=== PATIENT | male | born 1960 | race Caucasian/White ===

== ENCOUNTER 2018-04-08 01:28 | Emergency (ER) | payer MEDICARE ==
[~2018-04-08] VITALS: Ht 177.8 cm; Wt 118.0 kg
[2018-04-08 01:29] VITALS: BP 119/80
== END 2018-04-08 03:12 | disposition home or self-care (01) ==
LOC: ED 03:00
DX: J41.1 Mucopurulent chronic bronchitis (principal); Z72.9 Problem related to lifestyle, unspecified; F17.200 Nicotine dependence, unspecified, uncomplicated
CPT/HCPCS: 71046; 99283

== ENCOUNTER 2018-04-14 16:09 | Emergency (ER) | payer MEDICARE ==
[~2018-04-14] VITALS: Ht 177.8 cm; Wt 114.4 kg
[2018-04-14 16:13] VITALS: BP 123/76
== END 2018-04-14 16:30 | disposition left against medical advice (07) ==
LOC: ED 16:23
DX: J06.9 Acute upper respiratory infection, unspecified (principal)
CPT/HCPCS: 99281

== ENCOUNTER 2018-04-24 18:40 | Emergency (ER) | payer MEDICARE ==
[~2018-04-24] VITALS: Ht 177.8 cm; Wt 112.0 kg
[2018-04-24 19:06] VITALS: BP 137/89
== END 2018-04-24 20:42 | disposition home or self-care (01) ==
LOC: ED 20:36
DX: R05 Cough (principal); Z72.9 Problem related to lifestyle, unspecified
CPT/HCPCS: 71046; 99283

== ENCOUNTER 2018-04-24 22:21 | Emergency (ER) | payer MEDICARE | END 2018-04-24 22:32 | disposition home or self-care (01) | LOC: ED 22:26 | DX: R07.0 Pain in throat (principal); Z53.21 Procedure and treatment not carried out due to patient leaving prior to being seen by health care provider ==

== ENCOUNTER 2018-04-29 00:10 | Emergency (ER) | payer MEDICARE ==
[~2018-04-29] VITALS: Ht 177.8 cm; Wt 114.9 kg
[2018-04-29 00:13] VITALS: BP 118/81
== END 2018-04-29 01:51 | disposition home or self-care (01) ==
LOC: ED 01:36
DX: J02.8 Acute pharyngitis due to other specified organisms (principal); R05 Cough; Z87.891 Personal history of nicotine dependence
CPT/HCPCS: 71046; 99283

== ENCOUNTER 2018-05-16 17:56 | Emergency (ER) | payer MEDICARE ==
[~2018-05-16] VITALS: Ht 177.8 cm; Wt 116.2 kg
[2018-05-16 18:10] VITALS: BP 117/67
== END 2018-05-16 19:01 | disposition home or self-care (01) ==
LOC: ED 18:55
DX: R05 Cough (principal)
CPT/HCPCS: 99283

== ENCOUNTER 2018-05-28 21:07 | Emergency (ER) | payer MEDICARE ==
[~2018-05-28] VITALS: Ht 177.8 cm; Wt 113.5 kg
[2018-05-28 21:19] VITALS: BP 135/77
--- NOTE | 2018-05-28 22:22 | NUR ---
PT HERE FOR COLD LIEK SYMPTOMS AND NOT FEELING WELL. JUST GENERALIZED NOT FEELING WELL. DENIES CP, SOB AND ANY DIZZYNESS.
[2018-05-28] MEDS ORDERED: DEXAMETHASONE 4 MG/ML, 1ML ONE (22:40)
--- NOTE | 2018-05-28 22:47 | NUR ---
PO STEROIDS WITH CRANBERRY JUICE GIVEN.
--- NOTE | 2018-05-28 22:56 | NUR ---
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
[2018-05-28] MEDS ORDERED: DEXAMETHASONE 4 MG/ML, 1ML PO ONE (23:00)
--- NOTE | 2018-05-28 23:28 | NUR ---
Patient/Caregiver given discharge instructions and they have confirmed that they understand the instructions. Patient ambulatory with steady gait.
== END 2018-05-28 23:30 | disposition home or self-care (01) ==
LOC: ED 21:35
DX: B34.9 Viral infection, unspecified (principal); Z72.9 Problem related to lifestyle, unspecified; Z87.01 Personal history of pneumonia (recurrent)
CPT/HCPCS: 71046; 99283; J1100

== ENCOUNTER 2018-06-02 18:05 | Emergency (ER) | payer MEDICARE ==
[~2018-06-02] VITALS: Ht 177.8 cm; Wt 113.6 kg
[2018-06-02 18:06] VITALS: BP 127/79
== END 2018-06-02 19:40 | disposition home or self-care (01) ==
LOC: ED 19:34
DX: R05 Cough (principal); Z72.9 Problem related to lifestyle, unspecified
CPT/HCPCS: 71046; 99283

== ENCOUNTER 2019-04-20 04:13 | Emergency (ER) | payer MEDICARE ==
[~2019-04-20] VITALS: Ht 177.8 cm; Wt 104.7 kg
[2019-04-20 04:15] VITALS: BP 134/82
[2019-04-20 05:04] LABS: RAPID INFLUENZA A Negative (Negative); RAPID INFLUENZA B Negative (Negative)
== END 2019-04-20 05:37 | disposition home or self-care (01) ==
LOC: ED 05:23
DX: J06.9 Acute upper respiratory infection, unspecified (principal); R19.7 Diarrhea, unspecified; R11.10 Vomiting, unspecified; J02.9 Acute pharyngitis, unspecified; M79.10 Myalgia, unspecified site; R68.83 Chills (without fever)
CPT/HCPCS: 71046; 87400; 99284

== ENCOUNTER 2019-04-20 21:28 | Emergency (ER) | payer MEDICARE ==
[~2019-04-20] VITALS: Ht 177.8 cm; Wt 103.8 kg
[2019-04-20 21:42] VITALS: BP 120/78
== END 2019-04-20 22:41 | disposition home or self-care (01) ==
LOC: ED 22:12
DX: J06.9 Acute upper respiratory infection, unspecified (principal); M79.10 Myalgia, unspecified site
CPT/HCPCS: 99283

== ENCOUNTER 2019-04-25 18:25 | Emergency (ER) | payer MEDICARE ==
[~2019-04-25] VITALS: Ht 177.8 cm; Wt 104.1 kg
[2019-04-25 18:29] VITALS: BP 102/69
--- NOTE | 2019-04-25 18:39 | NUR ---
PT HERE WITH C/O FEVER, RUNNY NOSE, AND "COLD SYMPTOMS" FOR APPROX. 2 YEARS. PA AT BEDSIDE.
--- NOTE | 2019-04-25 19:09 | NUR ---
Patient/Caregiver given discharge instructions and they have confirmed that they understand the instructions. Patient ambulatory with steady gait.
== END 2019-04-25 19:13 | disposition home or self-care (01) ==
LOC: ED 18:44
DX: B34.9 Viral infection, unspecified (principal); F17.200 Nicotine dependence, unspecified, uncomplicated
CPT/HCPCS: 99282

== ENCOUNTER 2019-05-23 19:35 | Emergency (ER) | payer MEDICARE ==
[~2019-05-23] VITALS: Ht 177.8 cm; Wt 110.0 kg
--- NOTE | 2019-05-23 20:01 | NUR ---
AMBULATORY TO ED. "I HAVE A COLD". EXTREMELY UNFORTHCOMING REGARDING SX, REPEATEDLY STATING "I HAVE A COLD" WHEN ASKED ANY QUESTION. RAMBLING. VSS. DENIES FEVER/SORE THROAT/COUGH/RUNNY NOSE/PAIN. PA AT BEDSIDE. AWAITING POC. CALL SANTOS IN REACH.
[2019-05-23 20:19] VITALS: BP 127/82
== END 2019-05-23 20:21 | disposition home or self-care (01) ==
LOC: ED 20:15
DX: J06.9 Acute upper respiratory infection, unspecified (principal)
CPT/HCPCS: 99283

== ENCOUNTER 2019-06-03 17:44 | Emergency (ER) | payer MEDICARE ==
[~2019-06-03] VITALS: Ht 177.8 cm; Wt 104.8 kg
[2019-06-03 17:49] VITALS: BP 139/81
== END 2019-06-03 20:17 ==
LOC: ED 20:00
DX: R06.02 Shortness of breath (principal); R50.9 Fever, unspecified; Z72.9 Problem related to lifestyle, unspecified; F17.200 Nicotine dependence, unspecified, uncomplicated; Z59.0 Homelessness
CPT/HCPCS: 71045; 99283

== ENCOUNTER 2019-08-09 19:46 | Emergency (ER) | payer MEDICARE ==
[~2019-08-09] VITALS: Ht 177.8 cm; Wt 109.0 kg
[2019-08-09 19:49] VITALS: BP 156/86
--- NOTE | 2019-08-09 20:10 | NUR ---
Patient presents to ER c/o sneezing, cough, chills, and DOWNEY x a few months. Patient states he was seen for the same at a hospital in [place] but nothing was done. Patient denies CP or SOB. Patient is in NAD. Respirations even and unlabored.
== END 2019-08-09 20:46 | disposition home or self-care (01) ==
LOC: ED 20:06
DX: R05 Cough (principal); R06.02 Shortness of breath; F17.200 Nicotine dependence, unspecified, uncomplicated
CPT/HCPCS: 71045; 99283

== ENCOUNTER 2019-08-18 22:20 | Emergency (ER) | payer MEDICARE ==
[~2019-08-18] VITALS: Ht 175.3 cm; Wt 105.5 kg
[2019-08-18] MEDS ORDERED: ACETAMINOPHEN 325 MG TABLET ONE (22:50)
--- NOTE | 2019-08-18 22:55 | NUR ---
PT HERE FOR RIGHT LEG PAIN. PT SAYS HE HAS HAD PAIN FOR MULTIPLE YEARS. PT MEDICATED FOR PAIN. PT VERBALIZED UNDERSTANDING OF DISCHARGE INSTRUCTIONS. PT GETTING DRESSED
[2019-08-18] MEDS ORDERED: ACETAMINOPHEN 325 MG TABLET PO ONE (23:00)
--- NOTE | 2019-08-18 23:09 | NUR ---
PT INFORMED THAT HE HAS BEEN DISCHARGED. PT SAID HE WILL GET DRESSED. WILL GIVEN PT A FEW MINUTES AND RECHECK
--- NOTE | 2019-08-18 23:16 | NUR ---
PT REFUSING TO LEAVE. SECURITY CALLED TO ESCORT PT OUT OF DEPARTMENT
[2019-08-18 23:17] VITALS: BP 139/72
== END 2019-08-18 23:19 ==
LOC: ED 23:13
DX: G43.C0 Periodic headache syndromes in child or adult, not intractable (principal); Z72.9 Problem related to lifestyle, unspecified
CPT/HCPCS: 99282

== ENCOUNTER 2019-08-30 13:03 | Emergency (ER) | payer MEDICARE ==
[~2019-08-30] VITALS: Ht 177.8 cm; Wt 101.0 kg
[2019-08-30 13:12] VITALS: BP 111/79
--- NOTE | 2019-08-30 13:26 | NUR ---
pt requesting water to drink, and a quiet place to sit for a bit. also complains of chronic shortness of breath, which we will evaluate for acuity today. food and drink provided. i will monitor and treat this pt as ordered, aS WELL PRN WHILE AWAITING THE RESULTS OF CXR.
== END 2019-08-30 14:32 | disposition home or self-care (01) ==
LOC: ED 13:53
DX: J06.9 Acute upper respiratory infection, unspecified (principal); F17.200 Nicotine dependence, unspecified, uncomplicated
CPT/HCPCS: 71045; 99283

== ENCOUNTER 2019-10-30 13:38 | Emergency (ER) | payer MEDICARE ==
[~2019-10-30] VITALS: Ht 177.8 cm; Wt 109.0 kg
[2019-10-30 13:51] VITALS: BP 135/79
== END 2019-10-30 15:52 | disposition home or self-care (01) ==
LOC: ED 15:45
DX: R05 Cough (principal); R50.9 Fever, unspecified; Z87.891 Personal history of nicotine dependence
CPT/HCPCS: 71046; 99283

== ENCOUNTER 2020-01-23 14:05 | Emergency (ER) | payer MEDICARE ==
[~2020-01-23] VITALS: Ht 177.8 cm; Wt 101.2 kg
[2020-01-23 14:08] VITALS: BP 167/98
--- NOTE | 2020-01-23 15:49 | NUR ---
YELITZA RN: PT LEFT BEFORE WRITTEN DISCHARGE INSTRUCTIONS COULD BE GIVEN.
== END 2020-01-23 15:51 | disposition home or self-care (01) ==
LOC: ED 15:45
DX: R05 Cough (principal)
CPT/HCPCS: 99281

== ENCOUNTER 2020-01-29 00:22 | Emergency (ER) | payer MEDICARE ==
[2020-01-29 00:27] VITALS: BP 116/59
--- NOTE | 2020-01-29 00:41 | NUR ---
1st contact c pt. sitting in chair, in nad. pt unccoperative c medical screening. pt states cough x tonight & chills. "nothings changed since i was born". at bs. will ctm.
[2020-01-29] MEDS ORDERED: ACETAMINOPHEN 325 MG TABLET ONE (00:54)
[2020-01-29] MEDS ORDERED: ACETAMINOPHEN 325 MG TABLET PO ONE (01:00)
== END 2020-01-29 01:06 | disposition home or self-care (01) ==
LOC: ED 00:59
DX: R05 Cough (principal); F17.210 Nicotine dependence, cigarettes, uncomplicated
CPT/HCPCS: 99282; 99406

== ENCOUNTER 2020-01-29 19:51 | Emergency (ER) | payer MEDICARE ==
[~2020-01-29] VITALS: Ht 177.8 cm; Wt 105.4 kg
[2020-01-29 22:07] VITALS: BP 141/71
--- NOTE | 2020-01-29 22:09 | NUR ---
VITALS RECHECKED, PT AWAITING ROOM AVAILABILITY
--- NOTE | 2020-01-29 22:17 | NUR ---
NO ANSWER WHEN CALLED FOR ROOM
--- NOTE | 2020-01-29 22:28 | NUR ---
PT AMBULATORY TO ROOM AT THIS TIME
== END 2020-01-29 23:36 | disposition home or self-care (01) ==
LOC: ED 22:30
DX: R05 Cough (principal); F17.200 Nicotine dependence, unspecified, uncomplicated
CPT/HCPCS: 99281

== ENCOUNTER 2020-01-31 19:58 | Emergency (ER) | payer MEDICARE ==
[~2020-01-31] VITALS: Ht 177.8 cm; Wt 107.1 kg
--- NOTE | 2020-01-31 20:20 | NUR ---
PT ON JUDSON, TALKING TO THE TV, FLIGHT OF IDEAS, PRESSURED SPEACH, HE DENIES ANY DX PSYCH DISORDER, DENIES TAKING ANY MEDICATIONS. DENIES SI/HI. SAYS HE IS HERE BECAUSE HE HAS A COUGH AND A COLD. NO FEVER. SPEAKS FULL COMPLETE SENTENCES.
--- NOTE | 2020-01-31 21:26 | NUR ---
PT IS A&O X4. PT IS ABLE TO SAFELY AMBULATE AROUND ROOM AND HINDS. VS STABLE. PT IN APPROPRIATE CLOTHING. PT GIVEN A TAXI VOUCHER TO THE JAIL PER REQUEST.
[2020-01-31 21:28] VITALS: BP 158/73
== END 2020-01-31 21:30 | disposition home or self-care (01) ==
LOC: ED 21:24
DX: B34.9 Viral infection, unspecified (principal)
CPT/HCPCS: 99281

== ENCOUNTER 2020-02-04 22:09 | Emergency (ER) | payer MEDICARE ==
[~2020-02-04] VITALS: Ht 177.8 cm; Wt 102.9 kg
--- NOTE | 2020-02-04 22:38 | NUR ---
pT STATES HE CAME IN CAUSE "I GOT PNEUMONIA" STATES HE WAS DIAGNOSED A FEW NIGHT AGO. DENIES SOB, STATES "I NEED TO GET AHOLD OF THE POLICE, SOMEONE STOLE MY CREDIT CARDS AGAIN FROM MY BANK ACCOUNT." PT NAD, DENIES ANY OTHER SYMPTOMS AT THIS TIME. WCTM. PT PLACED ON SPO2/BP.
--- NOTE | 2020-02-04 23:47 | NUR ---
Patient given discharge instructions and they have confirmed that they understand the instructions. Patient ambulatory with steady gait. DENIES ADDITIONAL NEEDS AT THIS TIME. NAD, VSS. NO PT BELONGINGS LEFT IN ROOM AFTER DC.
[2020-02-04 23:52] VITALS: BP 111/60
== END 2020-02-04 23:53 | disposition home or self-care (01) ==
LOC: ED 22:51
DX: J06.9 Acute upper respiratory infection, unspecified (principal)
CPT/HCPCS: 71045; 99283

== ENCOUNTER 2020-02-08 06:34 | Emergency (ER) | payer MEDICARE ==
[~2020-02-08] VITALS: Ht 177.8 cm; Wt 106.6 kg
--- NOTE | 2020-02-08 07:01 | NUR ---
REPORT FROM SUSAN HADLEY. PT SITTING UP IN BED, RESPIRATIONS EVEN AND UNLABORED ON RA. NAD NOTED AT THIS TIME. PT SPEAKING IN FULL SENTENCES TO REGISTRATION. SIDE RAIL UP, CALL LIGHT IN REACH. AWAITING CXR.
[2020-02-08 08:01] VITALS: BP 123/76
== END 2020-02-08 08:03 | disposition home or self-care (01) ==
LOC: ED 07:00
DX: B34.9 Viral infection, unspecified (principal); R06.02 Shortness of breath; R05 Cough; R07.9 Chest pain, unspecified; F17.200 Nicotine dependence, unspecified, uncomplicated
CPT/HCPCS: 71045; 99283

== ENCOUNTER 2020-02-10 23:14 | Emergency (ER) | payer MEDICARE | END 2020-02-10 23:29 | LOC: ED 23:16 | DX: R07.89 Other chest pain (principal) | CPT/HCPCS: 99281 ==

== ENCOUNTER 2020-02-13 20:45 | Emergency (ER) | payer MEDICARE ==
[~2020-02-13] VITALS: Ht 177.8 cm; Wt 106.8 kg
[2020-02-13 20:53] VITALS: BP 105/59
[2020-02-13] MEDS ORDERED: BENZONATATE 100 MG CAPSULE ONE ×3 (21:20→21:30)
[2020-02-13] MEDS ORDERED: IBUPROFEN 600 MG TABLET ONE (21:21)
[2020-02-13] MEDS ORDERED: IBUPROFEN 600 MG TABLET PO ONE (21:30)
[2020-02-13] MEDS ORDERED: BENZONATATE 100 MG CAPSULE PO ONE (21:30)
== END 2020-02-13 21:34 | disposition home or self-care (01) ==
LOC: ED 21:00
DX: R05 Cough (principal)
CPT/HCPCS: 99283

== ENCOUNTER 2020-02-23 19:35 | Emergency (ER) | payer MEDICARE ==
[~2020-02-23] VITALS: Ht 175.3 cm; Wt 106.6 kg
[2020-02-23 19:38] VITALS: BP 117/75
[2020-02-23] MEDS ORDERED: ACETAMINOPHEN 500 MG TABLET PO ONE (20:00)
[2020-02-23] MEDS ORDERED: ACETAMINOPHEN 500 MG TABLET ONE (20:05)
== END 2020-02-23 20:47 | disposition home or self-care (01) ==
LOC: ED 20:29
DX: R51.9 Headache, unspecified (principal)
CPT/HCPCS: 99282

== ENCOUNTER 2020-03-02 08:36 | Emergency (ER) | payer MEDICARE ==
[~2020-03-02] VITALS: Ht 177.8 cm; Wt 107.5 kg
[2020-03-02 08:40] VITALS: BP 134/75
--- NOTE | 2020-03-02 09:00 | NUR ---
ERMD IN TO EVAL PT, PT COVID R/O
== END 2020-03-02 10:11 | disposition home or self-care (01) ==
LOC: ED 08:45
DX: B34.9 Viral infection, unspecified (principal); J02.9 Acute pharyngitis, unspecified; Z20.828 Contact with and (suspected) exposure to other viral communicable diseases; R06.02 Shortness of breath; Z59.0 Homelessness
CPT/HCPCS: 36415; 71045; 87635; 99284

== ENCOUNTER 2020-03-05 00:02 | Emergency (ER) | payer MEDICARE ==
[~2020-03-05] VITALS: Ht 177.8 cm; Wt 106.6 kg
[2020-03-05 00:05] VITALS: BP 121/75
--- NOTE | 2020-03-05 00:54 | NUR ---
PT DC FROM LOBBY WITH REASSURANCE ALL RECENT VISIT RESULTS HAVE BEEN REVIEWED. PT AWARE OF REASON TO RETURN WELL WELL FOLLOW UP. ENCOURAGE PO FLUIDS.
== END 2020-03-05 01:28 | disposition home or self-care (01) ==
LOC: ED 01:22
DX: B34.9 Viral infection, unspecified (principal); R09.89 Other specified symptoms and signs involving the circulatory and respiratory systems
CPT/HCPCS: 99281

== ENCOUNTER 2020-03-14 23:55 | Emergency (ER) | payer MEDICARE ==
[~2020-03-14] VITALS: Ht 175.3 cm; Wt 109.0 kg
[2020-03-14 23:59] VITALS: BP 150/76
--- NOTE | 2020-03-15 00:45 | NUR ---
FIRST INTERACTION WITH PT: "WHAT BRINGS YOU TO THE ER TODAY?" PT REPLIES "IT'S COLD OUTSIDE." "WHAT MEDICAL PROBLEM ARE YOU HAVING TODAY?" PT REPLIES WITH NON-DESCRIPT GENERALIZED COMPLAINTS INCULDING SOB, N/V/D. PT RA SAT >95%.
== END 2020-03-15 01:19 ==
LOC: ED 03-15 00:31
DX: R05 Cough (principal); R06.02 Shortness of breath; R00.0 Tachycardia, unspecified; Z72.9 Problem related to lifestyle, unspecified; Z59.0 Homelessness
CPT/HCPCS: 71045; 93005; 99283

== ENCOUNTER 2020-03-24 18:48 | Emergency (ER) | payer MEDICARE ==
[~2020-03-24] VITALS: Ht 177.8 cm; Wt 104.8 kg
[2020-03-24 18:56] VITALS: BP 145/77
== END 2020-03-24 20:44 | disposition home or self-care (01) ==
LOC: ED 20:30
DX: U07.1 COVID-19 (principal); J18.9 Pneumonia, unspecified organism; J06.9 Acute upper respiratory infection, unspecified; R05 Cough; R50.9 Fever, unspecified
CPT/HCPCS: 71045; 87635; 99283; 99284

== ENCOUNTER 2020-04-04 22:37 | Emergency (ER) | payer MEDICARE ==
[2020-04-04 22:43] VITALS: BP 121/73
== END 2020-04-04 23:12 | disposition home or self-care (01) ==
LOC: ED 23:00
DX: R05 Cough (principal); J00 Acute nasopharyngitis [common cold]
CPT/HCPCS: 99281

== ENCOUNTER 2020-05-18 22:07 | Emergency (ER) | payer MEDICARE ==
[~2020-05-18] VITALS: Ht 177.8 cm; Wt 113.0 kg
[2020-05-18 22:20] VITALS: BP 155/97
--- NOTE | 2020-05-18 23:06 | NUR ---
DISCHARGED FROM [facility]
== END 2020-05-18 23:08 | disposition home or self-care (01) ==
LOC: ED 22:30
DX: B34.9 Viral infection, unspecified (principal)
CPT/HCPCS: 99281

== ENCOUNTER 2020-06-18 19:34 | Emergency (ER) | payer MEDICARE ==
[~2020-06-18] VITALS: Ht 177.8 cm; Wt 107.5 kg
--- NOTE | 2020-06-18 20:26 | NUR ---
"I got the covid-19", pt also [facility]
[2020-06-18 20:29] VITALS: BP 146/84
== END 2020-06-18 20:51 | disposition home or self-care (01) ==
LOC: ED 20:45
DX: Z00.00 Encounter for general adult medical examination without abnormal findings (principal); Z72.9 Problem related to lifestyle, unspecified
CPT/HCPCS: 99281